=== PATIENT | female | born 1970 | race Caucasian/White ===

== ENCOUNTER → 2020-08-24 | Outpatient (CLI) | payer OTHER ==
[~2020-08-24] MED LIST: AMLODIPINE BESYL5 MG PO; ASPIRIN325 MG PO; CETIRIZINE HCL10 MG PO; LINZESS PO; METOPROLOL TART25 MG PO; NAPROSYN500 MG PO; VITAMIN C500 M4 PO
[2020-08-24 12:49] LABS: HEMOGLOBIN 15.2 gm/dl (12.3-15.3); RED BLOOD COUNT 4.86 M/UL (4.00-5.10); WHITE BLOOD COUNT 6.1 K/UL (4.5-11.0)
[2020-08-24 13:14] LABS: BUN/CREATININE RATIO 11 (0-10)
[2020-08-25 14:12] LABS: THYROID PEROXIDASE (TPO) AB <9 IU/mL (0-34)
[2020-08-25 16:12] LABS: THYROGLOBULIN ANTIBODY <1.0 IU/mL (0.0-0.9); THYROGLOBULIN BY IMA 8.1 ng/mL (1.5-38.5)
== END ==
LOC: OPSV2 11:30
PROVIDERS: Nurse Practitioner Family
DX: Z01.818 Encounter for other preprocedural examination (principal); R94.31 Abnormal electrocardiogram [ECG] [EKG]
CPT/HCPCS: 36415; 71046; 80053; 80061; 83036; 84443; 85025; 86376; 86800; 93005

== ENCOUNTER → 2020-08-26 | Day surgery (SDC) | payer OTHER ==
[~2020-08-26] VITALS: Ht 165.1 cm; Wt 80.3 kg
== END | disposition home or self-care (01) ==
LOC: OR 06:43
DX: D36.13 Benign neoplasm of peripheral nerves and autonomic nervous system of lower limb, including hip (principal); I10 Essential (primary) hypertension; I49.9 Cardiac arrhythmia, unspecified; E78.5 Hyperlipidemia, unspecified; F41.9 Anxiety disorder, unspecified; Z53.9 Procedure and treatment not carried out, unspecified reason; Z88.8 Allergy status to other drugs, medicaments and biological substances; Z79.899 Other long term (current) drug therapy; Z20.822 Contact with and (suspected) exposure to COVID-19; Z87.891 Personal history of nicotine dependence; Z87.11 Personal history of peptic ulcer disease
CPT/HCPCS: J0690; J2795; J3370; J7120

== ENCOUNTER → 2020-09-02 | Day surgery (SDC) | payer OTHER ==
[~2020-09-02] VITALS: Ht 165.1 cm; Wt 80.3 kg
[2020-09-02 07:08] LABS: HEMOGLOBIN 14.4 gm/dl (12.3-15.3); RED BLOOD COUNT 4.59 M/UL (4.00-5.10); WHITE BLOOD COUNT 5.7 K/UL (4.5-11.0)
[2020-09-02 08:05] LABS: BUN/CREATININE RATIO 13 (0-10)
== END | disposition home or self-care (01) ==
LOC: OR 05:58
PROVIDERS: Podiatrist Foot & Ankle Surgery
PROC: 0JNQ0ZZ Release Right Foot Subcutaneous Tissue and Fascia, Open Approach (ICD-10-PCS; 2020-09-02)
PROC: 01BG0ZZ Excision of Tibial Nerve, Open Approach (ICD-10-PCS; principal; 2020-09-02 07:45)
DX: G57.81 Other specified mononeuropathies of right lower limb (principal); G89.29 Other chronic pain; I10 Essential (primary) hypertension; E78.5 Hyperlipidemia, unspecified; F41.9 Anxiety disorder, unspecified; Z87.11 Personal history of peptic ulcer disease; Z79.899 Other long term (current) drug therapy; Z87.891 Personal history of nicotine dependence; Z20.822 Contact with and (suspected) exposure to COVID-19; Z88.8 Allergy status to other drugs, medicaments and biological substances
CPT/HCPCS: 36415; 80048; 84703; 85027; J0690; J2001; J2250; J2405; J2704; J2795; J3010; J3370; J7120; Q4133

== ENCOUNTER → 2020-10-23 | Outpatient (CLI) | payer OTHER | LOC: KOH-I 08:44 | DX: M79.672 Pain in left foot (principal) | CPT/HCPCS: 73630 ==

== ENCOUNTER → 2020-12-11 | Outpatient (CLI) | payer OTHER | LOC: MRI 12-05 08:30 → KOH-I 14:15 → MRI 14:30 | DX: M79.672 Pain in left foot (principal); R60.9 Edema, unspecified | CPT/HCPCS: 73718 ==